=== PATIENT | female | born 1980 | race Caucasian/White ===

== ENCOUNTER 2021-09-04 13:57 | Emergency (ER) | payer OTHER, SELFPAY ==
[2021-09-04 14:09] VITALS: BP 132/75; PULSE 69; RESP 16; TEMP 37.3; O2SAT 98
[2021-09-04 14:28] VITALS: BP 132/75; PULSE 69; RESP 16; TEMP 37.3; O2SAT 98
--- NOTE | 2021-09-04 15:14 | ED.URI ---
HPI - URI/Sore Throat General Chief Complaint: Upper Respiratory Infection Stated Complaint: Sore throat Time Seen by Provider: 09/04/21 15:00 Source: patient and RN notes reviewed Mode of arrival: ambulatory Limitations: no limitations History of Present Illness HPI Narrative: Patient presents today with a 5-day history of sore throat, postnasal drip, with a 2-day history of fatigue and bilateral ear pain. Patient is unsure if she has strep throat or if the Ozempic that she was taking is causing severe acid reflux. She stopped the Ozempic because she was only taking it for weight loss, and had started taking omeprazole and Pepcid, which is helping very mildly. MD elicited complaint: sore throat Related Data Home Medications Medication Instructions Recorded Confirmed [place] Thyroid 09/04/21 Lexapro 09/04/21 Pepcid 09/04/21 Wellbutrin 09/04/21 aspirin 09/04/21 lisinopril-hydrochlorothiazide 2 tablet PO DAILY 09/04/21 09/04/21 omeprazole 09/04/21 Allergies Allergy/AdvReac Type Severity Reaction Status Date / Time latex Allergy Rash Verified 09/04/21 14:25 Sulfa (Sulfonamide Allergy Rash Verified 09/04/21 14:25 Antibiotics) Review of Systems Review of Systems: CONSTITUTIONAL: Denies body aches, fever, chills, or sweats.+ Fatigue EYES: Denies visual changes, redness, or discharge. ENT: Denies rhinorrhea, congestion, or otalgia.+ Sore throat, postnasal drip, bilateral ear pain CARDIOVASCULAR: Denies chest pain, palpitations, or edema. RESPIRATORY: Denies cough or dyspnea. GASTROINTESTINAL: Denies abdominal pain, nausea, vomiting, or diarrhea. GENITOURINARY: Denies dysuria or hematuria. SKIN: Denies rash, itching, or wounds. MUSCULOSKELETAL: Denies back pain, joint pain, or myalgia. NEUROLOGIC: Denies headache, numbness, tingling, or weakness. PSYCH: Denies depression or anxiety. [facility] Past Medical History Medical History (Updated 09/04/21 @ 16:15 by Sharmaine Hauser, [employer] DEVELOPER, ) GERD (gastroesophageal reflux disease) Hypertension Comments At time of signature, I have reviewed and agree with nursing past medical, surgical, social and family history unless otherwise noted. Please see nursing chart for further information. There is no relevant family history pertinent to the presenting complaint Exam Narrative: GENERAL: Well-appearing, well-nourished, and in no acute distress. HEAD: Normocephalic, atraumatic. EYES: EOMI. No redness or drainage. Conjunctivae normal. ENT: Mucous membranes pink and moist. Nares clear. No rhinorrhea. TMs normal bilaterally. Throat mildly erythematous without edema or exudate. Uvula midline. NECK: Normal AROM. Supple. No lymphadenopathy. CHEST: No respiratory distress. Clear to auscultation. HEART: Regular rate and rhythm. No murmur appreciated. Normal peripheral pulses. EXTREMITIES: Normal range of motion. No edema. SKIN: Warm, dry, no rash. Capillary refill normal. Normal skin turgor. NEURO: No focal deficits. Alert and oriented x3. Gait steady. PSYCH: Normal affect. No signs of depression or anxiety. Course Vital Signs Vital signs: Vital Signs Temperature 99.1 F 09/04/21 14:09 Pulse Rate 69 09/04/21 14:09 Respiratory Rate 16 09/04/21 14:09 Blood Pressure 132/75 09/04/21 14:09 Pulse Oximetry 98 09/04/21 14:09 Temperature 99.1 F 09/04/21 14:28 Pulse Rate 69 09/04/21 14:28 Respiratory Rate 16 09/04/21 14:28 Blood Pressure 132/75 09/04/21 14:28 Pulse Oximetry 98 09/04/21 14:28 Reviewed. Pt has been instructed to follow up with her PCP regarding her elevated blood pressure today. MDM - URI/Sore Throat Differential Diagnosis Differential diagnosis: Likely upper respiratory infection, otitis media, viral infection, pharyngitis and other (GERD, strep throat) Lab Data Attestation: I reviewed the patient's lab results. Lab results narrative: Rapid COVID-19 test negative Labs: Lab Results 09/04/21 Range/Units
--- NOTE | 2021-09-04 15:54 | PC.NURSE ---
initial rapid covid done and was positive by reader but negative by naked eye. 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
== END 2021-09-04 16:20 | disposition home or self-care (01) ==
PROVIDERS: Emergency Provider Nurse Practitioner
DX: J02.9 Acute pharyngitis, unspecified (principal); Z20.822 Contact with and (suspected) exposure to COVID-19; K21.9 Gastro-esophageal reflux disease without esophagitis; I10 Essential (primary) hypertension
CPT/HCPCS: 87081; 87426; 87880; 99213; C9803; G0463